=== PATIENT | male | born 2000 | race Caucasian/White ===

== ENCOUNTER 2022-09-13 17:41 | Emergency (ER) | payer BC, OTHER ==
[2022-09-13] MEDS: Sodium Chloride 0.9% 10 ML Syringe FLUSH PRN (17:59)
[2022-09-13] MEDS: Sodium Chloride 0.9% 1,000 ML IV ONE ×2 (18:06→19:04)
[2022-09-13 18:38] LABS: ANION GAP 14.6 mEq/L (7-13); CHLORIDE,CL 105 mmol/L (98-107); SODIUM,NA 141 mmol/L (136-145)
[2022-09-13 18:43] LABS: ESTIMATED GFR 87 mL/min (>=60)
[2022-09-13 19:04] LABS: CORONAVIRUS COVID-19 NAA NEGATIVE (NEGATIVE); RESPIRATORY SYNCYTIAL VIR NAA NEGATIVE (NEGATIVE)
== END 2022-09-13 19:59 | disposition home or self-care (01) ==
LOC: DL.ED 17:41
DX: R56.9 Unspecified convulsions (principal); S09.90XA Unspecified injury of head, initial encounter; Z20.822 Contact with and (suspected) exposure to COVID-19; W18.09XA Striking against other object with subsequent fall, initial encounter
CPT/HCPCS: 0241U; 36415; 70450; 72125; 73562-LT; 80053; 80307; 82550; 82947; 83605; 83735; 84484; 85025; 86140; 93005; 93010; 96360; 96361; 99284; 99285-25; J3490; J7030

== ENCOUNTER 2022-12-28 17:52 | Emergency (ER) | payer OTHER ==
[2022-12-28] MEDS ORDERED: Ondansetron 4 MG/2 ML SDV IVPUSH ONE (17:58)
[2022-12-28 18:30] LABS: ANION GAP 19.6 mEq/L (7-13); CHLORIDE,CL 102 mmol/L (98-107); SODIUM,NA 140 mmol/L (136-145)
[2022-12-28 18:32] LABS: ESTIMATED GFR 90 mL/min (>=60)
[2022-12-28] MEDS ORDERED: Sodium Chloride 0.9% 1,000 ML IV ONE ×2 (18:33→18:34)
[2022-12-28] MEDS ORDERED: levETIRAcetam 500 MG Tab PO ONE (20:30)
[2022-12-28] MEDS ORDERED: Lactated Ringers 1,000 ML IV ONE (20:35)
[2022-12-28 21:57] LABS: AMPHETAMINES,URINE NEGATIVE (NEGATIVE); BARBITURATES,URINE NEGATIVE (NEGATIVE); BENZODIAZEPINE,URINE NEGATIVE (NEGATIVE); MDMA (ECSTASY), URINE NEGATIVE (NEGATIVE); METHADONE,URINE NEGATIVE (NEGATIVE); METHAMPHETAMINES,URINE NEGATIVE (NEGATIVE); OPIATES,URINE NEGATIVE (NEGATIVE); OXYCODONE,URINE NEGATIVE (NEGATIVE); PHENCYCLIDINE,URINE NEGATIVE (NEGATIVE); TCA,URINE NEGATIVE (NEGATIVE)
== END 2022-12-28 21:38 | disposition home or self-care (01) ==
LOC: DL.ED 17:52
DX: S09.90XA Unspecified injury of head, initial encounter (principal); R56.9 Unspecified convulsions; E87.20 Acidosis, unspecified; W01.198A Fall on same level from slipping, tripping and stumbling with subsequent striking against other object, initial encounter; Y92.000 Kitchen of unspecified non-institutional (private) residence as the place of occurrence of the external cause
CPT/HCPCS: 36415; 70450; 80053; 80305; 80307; 81003; 82550; 83605; 83735; 85025; 93005; 96361; 96365; 96375; 99285; A9270; J2405; J7030; J7120

== ENCOUNTER 2023-01-01 08:02 | Emergency (ER) | payer OTHER ==
[2023-01-01 08:47] LABS: ANION GAP 11.2 mEq/L (7-13); CHLORIDE,CL 104 mmol/L (98-107); SODIUM,NA 140 mmol/L (136-145)
[2023-01-01 08:49] LABS: ESTIMATED GFR 118 mL/min (>=60)
[2023-01-01] MEDS ORDERED: levETIRAcetam 500 MG Tab PO SCH (09:15)
[2023-01-01 09:48] LABS: MDMA (ECSTASY), URINE NEGATIVE (NEGATIVE); METHAMPHETAMINES,URINE NEGATIVE (NEGATIVE)
[2023-01-01 09:49] LABS: AMPHETAMINES,URINE NEGATIVE (NEGATIVE); BARBITURATES,URINE NEGATIVE (NEGATIVE); BENZODIAZEPINE,URINE NEGATIVE (NEGATIVE); METHADONE,URINE NEGATIVE (NEGATIVE); OPIATES,URINE NEGATIVE (NEGATIVE); OXYCODONE,URINE NEGATIVE (NEGATIVE); PHENCYCLIDINE,URINE NEGATIVE (NEGATIVE); TCA,URINE NEGATIVE (NEGATIVE)
== END 2023-01-01 10:12 | disposition home or self-care (01) ==
LOC: DL.ED 08:02
DX: S09.90XA Unspecified injury of head, initial encounter (principal); G40.A09 Absence epileptic syndrome, not intractable, without status epilepticus; E83.42 Hypomagnesemia
CPT/HCPCS: 36415; 80053; 80305; 80307; 81003; 82947; 83605; 83735; 85025; 99285; A9270; 99283

== ENCOUNTER 2023-05-19 19:43 | Emergency (ER) | payer OTHER ==
[2023-05-19] MEDS ORDERED: Lidocaine 1% 5 ML VIAL INJECT ONE (20:01)
[2023-05-19] MEDS ORDERED: Bacitracin Oint 1 GM U/D Packet TOP ONE (20:01)
[2023-05-19] MEDS ORDERED: Diphtheria,Pertussis(Acell),Tetanus Vaccine 0.5 ML Syringe IM ONE (20:01)
== END 2023-05-19 22:16 | disposition home or self-care (01) ==
LOC: DL.ED 19:43
DX: S01.81XA Laceration without foreign body of other part of head, initial encounter (principal); Z23 Encounter for immunization; W18.30XA Fall on same level, unspecified, initial encounter; Y93.01 Activity, walking, marching and hiking; Y92.002 Bathroom of unspecified non-institutional (private) residence as the place of occurrence of the external cause
CPT/HCPCS: 12011; 70450; 72125; 90471; 90715; 99282; 99283-25; A9270-GY; J3490